=== PATIENT | male | born 1940 | race American Indian/Alaskan Native ===

== ENCOUNTER 2018-07-13 08:08 | Outpatient (CLI) | payer MEDICARE | END 2018-07-13 08:09 | disposition home or self-care (01) | LOC: C.PAT 08:08 | DX: R97.20 Elevated prostate specific antigen [PSA] (principal) ==

== ENCOUNTER 2018-07-19 09:01 | Day surgery (SDC) | payer MEDICARE ==
[2018-07-13 08:18] VITALS: BMI 31.4
[2018-07-19] MEDS ORDERED: cefTRIAXone 1 gm 1 GM/100 ML BAG IVPB ONE (09:56)
[2018-07-19] MEDS ORDERED: Lidocaine 2% Jelly (Uro-Jet) ONE (09:57)
[2018-07-19 10:08] VITALS: O2SAT 100
[2018-07-19] MEDS ORDERED: Gentamicin 80 mg in 0.9% NS 160 MG/200 ML BAG IVPB ONE (10:22)
[2018-07-19] MEDS ORDERED: Midazolam 2 MG/2 ML VIAL ONE (10:23)
[2018-07-19] MEDS ORDERED: Propofol 10 mg/ml Inj (20 ML) ONE ×2 (10:24→11:03)
[2018-07-19] MEDS ORDERED: HYDROmorphone 0.5 mg/0.5 ml ISec IVP PRN (11:26)
[2018-07-19 14:25] VITALS: PULSE 64; RESP 16; TEMP 97.6
[2018-07-19 15:19] VITALS: BP 170/71
--- NOTE | 2018-07-19 22:57 | OP ---
PROCEDURE DATE: 07/19/2018 PREOPERATIVE DIAGNOSIS: Elevated prostate-specific antigen of 8.1. POSTOPERATIVE DIAGNOSIS: Elevated prostate-specific antigen of 8.1 and prostatic urethral bleeding. PROCEDURES: Transrectal ultrasound diagnostic, transrectal ultrasound guidance, transrectal prostatic biopsies, cystoscopy with clot evacuation and fulguration of prostatic urethra with insertion of Antonio catheter. OPERATIVE REPORT: The patient is brought to the operating room. Prior to the procedure, he was interviewed and confirmed he has not taken any NSAIDs or aspirin for over a week. He was told that in a rare and unlikely situation, he has heavy postop bleeding. He is to call the office and/or go to the emergency room including if he gets any high fever or chills. He was medicated with 1 g of Rocephin and 160 mg of gentamicin IV piggyback, placed in lithotomy position, prepped and draped in usual fashion. Betadine was used to cleanse the rectum using a lidocaine jelly tube. The transducer was admitted into the prostate and it was found to be very enlarged with a total volume of 86 cm. No hypoechoic lesions were noted. We now turned our attention to prostatic biopsies, these were done in the usual fashion dividing the prostate into six sextants and taking two biopsies per sextant. As the procedure was proceeding, I noticed some blood per urethra. After the procedure was completed and after maintaining compression of the prostate by the transducer for 5 minutes, we have removed it, and I decided to insert a Antonio catheter to check the status and the efflux was quite bloody. We then removed the Antonio and reprepped and draped the patient and set him up for cystoscopy. This was done with a 22-[place] scope. Unfortunately, the unit to take pictures was not operative. After irrigating out clots, I had an excellent view of the bladder which was totally intact. There was no perforation or active bleeding or any abnormalities whatsoever in the bladder except for minor trabeculation. The orifices were well visualized as well. Upon withdrawal of the enter in the prostate, the prostate was huge, very obstructive with a significant median lobe component. There were one to two areas of bleeding in the prostate, and this could have been just from the size of the prostate and irritation from the scope. I did not see any active pumping. Using a Bovie, two or three areas of mucosa were gently cauterized. We now reevaluated the bladder and the prostate with the water inflow off and were running very slowly, and there was no active bleeding, whatsoever. For safety reasons, I decided to place a three-way Antonio catheter, and the output of the CVI was very light pink. Estimated blood loss was 50 mL. Aram King MD
== END 2018-07-19 14:58 | disposition home or self-care (01) ==
LOC: C.SDS 09:01
PROVIDERS: ATTEND Urology
DX: R97.20 Elevated prostate specific antigen [PSA] (principal)
CPT/HCPCS: 36415; 52214; 86850; 86900; 88305; J0696; J1580